=== PATIENT | male | born 1960 | race Caucasian/White ===

== ENCOUNTER 2020-06-11 10:49 | Emergency (ER) | payer OTHER ==
[~2020-06-11] VITALS: Ht 12.7 cm; Wt 68.0 kg
[2020-06-11 10:59] VITALS: BP 129/70
--- NOTE | 2020-06-11 11:04 | NUR ---
PT W/C ASSISTED TO BED 3.
--- NOTE | 2020-06-11 11:15 | NUR ---
60 Y/O M BROUGHT IN VIA W/C BY CAREGIVER WITH C/C UPPER LIP LACERATION S/P FALL. PT'S CAREGIVER IS AT BEDSIDE. PT PRESENTS NON-VERBAL WITH HISTORY OF DOWN SYNDROME AND "SEVERE METAL RETARDATION" PER CAREGIVER. CAREGIVER STATES PT WAS IN D[place]ING [place] AT [facility] AND APPROXIMATELY AT 0920, HAD AN UNWITNESS FALL. BYSTANDERS NEARBY STATES PT WAS STANDING PRIOR TO FALLING TO THE GROUND AND DID NOT LOSE LOC. CAREGIVER STATES HE WAS NEARBY AND WAS ASSISTED BY STAFF SHORTLY AFTER INCIDENT. LACERATION NOTED ABOVE LIP, TO LEFT EYE; BLEEDING CONTROLLED. BLOOD NOTED ON TONGUE WITH NO ORAL TRAUMA. CAREGIVER DENIES ANY BLOOD THINNERS. PER CAREGIVER, UNKNOWN OF LAST TETANUS SHOT. PT PLACED ONTO COLLATERAL ANALYST, LUNG SOUNDS CTA. BED LOCKED IN LOWEST POSITION, SIDE RAILS X 1. PMH: DOWN SYNDROME, METAL RETARDATION, HLD, HTN MEDS: PER CAREGIVER: "BENZODIAZAPINE, BUSPIRONE, ALPRAZOLAM NKA
--- NOTE | 2020-06-11 11:18 | NUR ---
DR. WAGGONER IS EVALUATING PATIENT AT BEDSIDE.
--- NOTE | 2020-06-11 11:40 | NUR ---
EKG AT BEDSIDE
--- NOTE | 2020-06-11 11:42 | NUR ---
SIGNATURE OBTAINED BY PT'S CAREGIVER FOR TDAP VACCINE CONSENT FORM.
--- NOTE | 2020-06-11 11:45 | NUR ---
BEDSIDE COMMODE PROVIDED PER PATIENT'S CAREGIVER REQUEST. CAREGIVER ATTEMPTING TO OBTAIN URINE SAMPLE FROM PT.
--- NOTE | 2020-06-11 11:48 | NUR ---
IRRIGATED PT LIPS WITH SALINE
--- NOTE | 2020-06-11 11:50 | NUR ---
UNABLE TO OBTAIN URINE AT THIS TIME.
--- NOTE | 2020-06-11 12:00 | NUR ---
CAREGIVER AT BEDSIDE ACCOMPANYING PATIENT. CARDIAC MONTIOR IN PLACE. EQUAL CHEST RISE AND FALL. NO OBVIOUS DISTRESS NOTED. BED LOCKED IN LOWEST POSITION, SIDE RAILS X 1, CALL LIGHT IN REACH.
--- NOTE | 2020-06-11 12:05 | NUR ---
LAB AT BEDSIDE UNABLE TO OBTAIN BLOOD WORK DUE TO AGITATION. BED LOCKED IN LOWEST POSITION, SIDE RAILS X 1, CALL LIGHT IN REACH. CAREGIVER AT BEDSIDE.
[2020-06-11 12:27] VITALS: BP 118/57
--- NOTE | 2020-06-11 12:27 | NUR ---
Patient discharged with v/s stable. Written and verbal after care instructions given and explained. Patient verbalized understanding. Ambulatory with by caregiver. All questions addressed prior to discharge. Advised to follow up with PMD.
== END 2020-06-11 12:27 | disposition home or self-care (01) ==
LOC: MED 10:49
DX: S01.112A Laceration without foreign body of left eyelid and periocular area, initial encounter (principal); S01.511A Laceration without foreign body of lip, initial encounter; I10 Essential (primary) hypertension; W19.XXXA Unspecified fall, initial encounter; Y93.89 Activity, other specified; Y92.89 Other specified places as the place of occurrence of the external cause; Y99.8 Other external cause status
CPT/HCPCS: 90471; 90715; 93005; 99284

== ENCOUNTER 2020-06-24 10:35 | Emergency (ER) | payer OTHER ==
[~2020-06-24] VITALS: Ht 149.9 cm; Wt 68.0 kg
[2020-06-24 10:45] VITALS: BP 129/54
[2020-06-24] MEDS ORDERED: IBUP-2213 PO (12:03)
[2020-06-24 12:47] VITALS: BP 124/60
== END 2020-06-24 12:47 | disposition home or self-care (01) ==
LOC: MED 10:35
DX: S62.291A Other fracture of first metacarpal bone, right hand, initial encounter for closed fracture (principal); I10 Essential (primary) hypertension; F88 Other disorders of psychological development; W18.39XA Other fall on same level, initial encounter; Y93.89 Activity, other specified; Y92.89 Other specified places as the place of occurrence of the external cause; Y99.8 Other external cause status
CPT/HCPCS: 73130; 99283